=== PATIENT | female | born 1975 | race American Indian/Alaskan Native ===

== ENCOUNTER 2020-04-02 17:55 | Emergency (ER) | payer BC, OTHER ==
[2020-04-02 18:02] VITALS: BP 161/103
--- NOTE | 2020-04-02 18:07 | Event Note ---
ED Screening Note Date of service: 04/02/20 Time: 18:06 ED Screening Note: Patient complains of shortness of breath and hemoptysis x2 days Denies history of DVT/PE or leg pain/swelling or recent long travel This initial assessment/diagnostic orders/clinical plan/treatment(s) is/are subject to change based on patients health status, clinical progression and re- assessment by fellow clinical providers in the ED. Further treatment and workup at subsequent clinical providers discretion. Patient/guardian urged not to elope from the ED as their condition may be serious if not clinically assessed and managed. Initial orders include: Labs Chest x-ray
[2020-04-02 18:51] LABS: Basophils % (Auto) 0.2 % (0.0-1.8); Eosinophils % (Auto) 0.4 % (0.0-4.3); Hematocrit 39.9 % (30.3-42.9); Hemoglobin 13.6 gm/dl (10.1-14.3); Lymphocytes # (Auto) 1.7 K/mm3 (1.2-5.4); Lymphocytes % (Auto) 31.1 % (13.4-35.0); Mean Corpuscular HGB Conc 34 % (30-34); Mean Corpuscular Volume 83 fl (79-97); Monocytes # (Auto) 0.4 K/mm3 (0.0-0.8); Monocytes % (Auto) 6.6 % (0.0-7.3); Platelet Count 306 K/mm3 (140-440); Red Blood Count 4.84 M/mm3 (3.65-5.03); Red Cell Distribution Width 14.7 % (13.2-15.2)
[2020-04-02 18:58] LABS: INR 1.12 (0.87-1.13); Partial Thromboplastin Time 26.6 Sec. (24.2-36.6)
[2020-04-02 19:11] LABS: Alanine Aminotransferase 30 units/L (7-56); Albumin 3.8 g/dL (3.9-5); BUN/Creatinine Ratio 10; Blood Urea Nitrogen 8 mg/dL (7-17); Calcium 8.6 mg/dL (8.4-10.2); Hemolysis Index 3
--- NOTE | 2020-04-02 19:41 | XRay Report ---
CHEST PA AND LATERAL VIEWS INDICATION: hemoptysis, SOB. COMPARISON: None FINDINGS: Support devices: None Heart: Normal Lungs/Pleura: No acute pulmonary or pleural findings. IMPRESSION: 1. No active disease. Signer Name: Cal Duarte MD Signed: 04/02/2020 7:36 PM Workstation Name: [id number]
--- NOTE | 2020-04-02 21:57 | Emergency Department Report ---
- General Chief Complaint: Dyspnea/Respdistress Stated Complaint: DIFFICULTY BREATHING/COUGHING BLOOD Time Seen by Provider: 04/02/20 18:05 Source: patient Mode of arrival: Ambulatory Limitations: No Limitations - History of Present Illness Initial Comments: Patient is a 44-year-old -Bangl[place]hi female with a history of obesity and hypertension who presents to the ED with complaint of acute onset persistent nasal and sinus congestion, persistent dry cough with shortness of breath for the last 1 week worse in the last 2 days. Patient states that the cough is especially worse at night when she lays down to sleep and the nasal and sinus congestion has since improved significantly. Patient states that she has been taking nqiu-gaz-kthnhrs medications with no relief. Patient denies dizziness, syncope, fever, chills, nausea, vomiting, chest pain, abdominal pain, sore th roat, headache, change in vision or hemoptysis or diarrhea. MD Complaint: cough -: week(s) (1) Severity: moderate Severity scale (0 -10): 5 Quality: dull, aching Consistency: constant Improves With: nothing Worsens With: nothing Associated Symptoms: denies other symptoms, rhinorrhea, nasal congestion, cough. denies: fever, myalgias, diaphoresis, headache, sore throat, stiff neck, chest pain, shortness of breath, abdominal pain, nausea, vomiting, diarrhea, dysuria, rash, confusion, right sweats, weight loss, epistaxis, ear pain Treatments Prior to Arrival: none - Related Data Home Medications Medication Instructions Recorded Confirmed Last Taken Amlodipine Besylate [Norvasc] 04/18/13 04/18/13 Unknown Previous Rx's Medication Instructions Recorded Last Taken Type Butalb/Acetaminophen/Caffeine 1 each PO Q6HR PRN #10 tablet 04/18/13 Unknown Rx [Fioricet 50-325-40 mg Tablet] Albuterol Sulfate [Proventil Hfa] 1 - 2 puff IH Q4H PRN #1 hfa.aer.ad 04/02/20 Unknown Rx Azithromycin [Zithromax Z-WILLIAM] 250 mg PO DAILY #6 tablet 04/02/20 Unknown Rx Benzonatate [Tessalon Perles] 100 mg PO Q8HR #30 capsule 04/02/20 Unknown Rx Cetirizine HCl [Zyrtec 10mg tab] 10 mg PO DAILY #30 tablet 04/02/20 Unknown Rx methylPREDNISolone [Medrol 4MG 4 mg PO DAILY #21 tab.ds.pk 04/02/20 Unknown Rx DOSEPAK (21 tabs)] Allergies Allergy/AdvReac Type Severity Reaction Status Date / Time No Known Allergies Allergy Unverified 04/18/13 13:21 ED Review of Systems ROS: Stated complaint: DIFFICULTY BREATHING/COUGHING BLOOD Other details as noted in HPI Constitutional: denies: chills, fever Eyes: denies: eye pain, eye discharge, vision change ENT: congestion. denies: ear pain, throat pain Respiratory: cough, shortness of breath. denies: wheezing Cardiovascular: denies: chest pain, palpitations Endocrine: no symptoms reported Gastrointestinal: denies: abdominal pain, nausea, diarrhea Genitourinary: denies: urgency, dysuria, discharge Musculoskeletal: denies: back pain, joint swelling, arthralgia Skin: denies: rash, lesions Neurological: headache. denies: weakness, paresthesias Psychiatric: denies: anxiety, depression Hematological/Lymphatic: denies: easy bleeding, easy bruising ED Past Medical Hx - Past Medical History Previous Medical History?: Yes Hx Hypertension: Yes - Social History Smoking Status: Never Smoker Substance Use Type: None - Medications Home Medications: Home Medications Medication Instructions Recorded Confirmed Last Taken Type Amlodipine Besylate [Norvasc] 04/18/13 04/18/13 Unknown History Butalb/Acetaminophen/Caffeine 1 each PO Q6HR PRN #10 tablet 04/18/13 Unknown Rx [Fioricet 50-325-40 mg Tablet] Albuterol Sulfate [Proventil Hfa] 1 - 2 puff IH Q4H PRN #1 hfa.aer.ad 04/02/20 Unknown Rx Azithromycin [Zithromax Z-WILLIAM] 250 mg PO DAILY #6 tablet 04/02/20 Unknown Rx Benzonatate [Tessalon Perles] 100 mg PO Q8HR #30 capsule 04/02/20 Unknown Rx Cetirizine HCl [Zyrtec 10mg tab] 10 mg PO DAILY #30 tablet 04/02/20 Unknown Rx methylPREDNISolone [Medrol 4MG 4 mg PO DAILY #21 tab.ds.pk 04/02/20 Unknown Rx DOSEPAK (21 tabs)] ED Physical Exam - General Limitations: No Limitations General appearance: alert, in no apparent distress - Head Head exam: Present: atraumatic, normocephalic - Eye Eye exam: Present: normal appearance, PERRL, EOMI - ENT ENT exam: Present: normal exam, normal orophraynx, mucous membranes moist, TM's normal bilaterally, normal external ear exam - Neck Neck exam: Present: normal inspection, full ROM - Respiratory Respiratory exam: Present: normal lung sounds bilaterally. Absent: respiratory distress, wheezes, rales, rhonchi, stridor, chest wall tenderness, accessory muscle use, decreased breath sounds, prolonged expiratory - Cardiovascular Cardiovascular Exam: Present: normal rhythm, tachycardia, normal heart sounds. Absent: systolic murmur, diastolic murmur, rubs, gallop - GI/Abdominal GI/Abdominal exam: Present: soft, normal bowel sounds. Absent: distended, tenderness, guarding, hyperactive bowel sounds, hypoactive bowel sounds, organomegaly - Extremities Exam Extremities exam: Present: normal inspection, full ROM, normal capillary refill - Back Exam Back exam: Present: normal inspection, full ROM. Absent: tenderness, CVA tenderness (R), CVA tenderness (L), muscle spasm, paraspinal tenderness, verteb ral tenderness - Neurological Exam Neurological exam: Present: alert, oriented X3, CN II-XII intact, normal gait, reflexes normal - Psychiatric Psychiatric exam: Present: normal affect, normal mood - Skin Skin exam: Present: warm, dry, intact, normal color. Absent: rash ED Course Vital Signs 04/02/20 18:00 Temperature 99.0 F Pulse Rate 132 H Respiratory 20 Rate Blood Pressure 161/103 O2 Sat by Pulse 96 Oximetry ED Medical Decision Making - Lab Data Result diagrams: 04/02/20 18:17 04/02/20 18:17 - Radiology Data Findings [facility] [address] [place] [address] XRay Report Signed Patient: UJANY CHANG MR# : [id number] : 1975 Acct:[id number] Age/Sex: 44 / F ADM Date: 04/02/20 Loc: ED Attending Dr: Ordering Physician: JACY CARRASQUILLO Date of Service: 04/02/20 Procedure(s): XR chest routine 2V Accession Number(s): [id number] cc: JACY CARRASQUILLO Fluoro Time In Minutes: CHEST PA AND LATERAL VIEWS INDICATION: hemoptysis, SOB. COMPARISON: None FINDINGS: Support devices: None Heart: Normal Lungs/Pleura: No acute pulmonary or pleural findings. IMPRESSION: 1. No active disease. Signer Name: Cal Duarte MD Signed: 04/02/2020 7:36 PM Workstation Name: [id number] Transcribed By: TM Dictated By: Cal Duarte MD Electronically Authenticated By: Cal Duarte MD Signed Date/Time: 04/02/201935 DD/ 34 TD/TT: - Medical Decision Making This is a 44-year-old -B[place] female with a history of obesity and hypertension who presents to the ED with complaint of acute onset persistent nasal and sinus congestion, persistent dry cough with shortness of breath for the last 1 week worse in the last 2 days. Patient states that the cough is especially worse at night when she lays down to sleep and the nasal and sinus co ngestion has since improved significantly. Patient states that she has been taking lykp-fkv-xcnpcya medications with no relief. In the ED, patient is alert and oriented x3 and is not in any distress. Patient was however anxious and tachycardic in triage. Chest x-ray shows no acute cardiopulmonary abnormalities or pneumonitis. Lab test results were reviewed and are all nonactionable. On reevaluation, patient his hemodynamically stable, with oxygen saturation of 96% in room air and tachycardia improved significantly to 105 bpm due to anxiety. Patient was discharged home on medications and advised to follow-up with her primary care physician in 7 to 10 days for reevaluation or return to the ED immediately if symptoms get worse. - Differential Diagnosis Bronchitis; pneumonia; URI; Sinusitis; Covid-19 Critical care attestation.: If time is entered above; I have spent that time in minutes in the direct care of this critically ill patient, excluding procedure time. ED Disposition Clinical Impression: Acute upper respiratory infection Acute bronchitis Qualifiers: Bronchitis organism: other organism Qualified Code(s): J20.8 - Acute bronchitis due to other specified organisms Disposition: DC-01 TO HOME OR SELFCARE Is pt being admited?: No Does the pt Need Aspirin: No Condition: Stable Instructions: Acute Bronchitis (ED), Upper Respiratory Infection, Adult, Nzfs-[id number], Acute Bronchitis, Adult, [id number]-[id number] Additional Instructions: All lab test results are nonactionable. Chest x-ray shows no acute abnormalities. Therefore take medications with food, drink plenty of fluids and follow up with your Primary Care Physician in 7-10 days for reevaluation. Return to the ED immediately if symptoms get worse Prescriptions: methylPREDNISolone [Medrol 4MG DOSEPAK (21 tabs)] 4 mg PO DAILY #21 tab.ds.pk Albuterol Sulfate [Proventil Hfa] 1 - 2 puff IH Q4H PRN #1 hfa.aer.ad PRN Reason: Dyspnea Benzonatate [Tessalon Perles] 100 mg PO Q8HR #30 capsule Azithromycin [Zithromax Z-WILLIAM] 250 mg PO DAILY #6 tablet Cetirizine HCl [Zyrtec 10mg tab] 10 mg PO DAILY #30 tablet Referrals: [facility] [Provider Group] - 7-10 days YASIR HATHAWAY MD [Staff Physician] - 3-5 Days Time of Disposition: 21:53 Print Language: PORTUGUESE
== END 2020-04-02 22:30 | disposition home or self-care (01) ==
LOC: ED 17:55
DX: J20.9 Acute bronchitis, unspecified (principal); J06.9 Acute upper respiratory infection, unspecified; I10 Essential (primary) hypertension; Z79.2 Long term (current) use of antibiotics; Z79.899 Other long term (current) drug therapy
CPT/HCPCS: 36415; 71046; 80053; 84703; 85025; 85610; 85730

== ENCOUNTER 2020-06-15 20:03 | Emergency (ER) | payer OTHER ==
--- NOTE | 2020-06-15 20:34 | Event Note ---
ED Screening Note Date of service: 06/15/20 Time: 20:33 ED Screening Note: Patient complains of right hip pain after a fall 1 week ago States trouble with abduction of the right hip This initial assessment/diagnostic orders/clinical plan/treatment(s) is/are subject to change based on patients health status, clinical progression and re- assessment by fellow clinical providers in the ED. Further treatment and workup at subsequent clinical providers discretion. Patient/guardian urged not to elope from the ED as their condition may be serious if not clinically assessed and managed. Initial orders include: X-ray
--- NOTE | 2020-06-15 21:44 | XRay Report ---
RIGHT HIP 3 VIEW(S) INDICATION / CLINICAL INFORMATION: pain after fall injury COMPARISON: None available. FINDINGS: BONES / JOINT(S): No acute fracture or subluxation. Mild right hip arthrosis with marginal osteophyte of the acetabulum. SOFT TISSUES: No significant abnormality. ADDITIONAL FINDINGS: None. Signer Name: River Pike MD Signed: 06/15/2020 9:40 PM Workstation Name: [id number]
--- NOTE | 2020-06-15 22:02 | Emergency Department Report ---
ED Fall HPI - General Chief Complaint: Extremity Injury, Lower Stated Complaint: FALL/RT SIDE HIP PAIN Time Seen by Provider: 06/15/20 20:33 Source: patient Mode of arrival: Ambulatory - History of Present Illness Initial Comments: 44-year-old obese -[place] female [facility] department status post slip and fall onto her right hip causing pain and throbbing. She was on 03/04 involving the right side reports having dull throbbing pain with palpation and various points of range of motion reports no numbness or tingling, no saddle paresthesia, no fever, chills, sweats, no hematuria, no dysuria, no back pain Complaint: fall -: Sudden Fall From: standing Fall Witnessed: yes, by family Place Fall Occurred: home Loss of Consciousness: none Prolonged Down Time?: no Symptoms Prior to Fall: none Location - Extremities: Right: Leg Severity: mild, moderate Quality: dull Context: tripped/slipped Associated Symptoms: denies: neck pain, numbness, shortness of breath, abdominal pain, hematuria, unable to walk, vertigo, confusion - Related Data Home Medications Medication Instructions Recorded Confirmed Last Taken Amlodipine Besylate [Norvasc] 04/18/13 04/18/13 Unknown Previous Rx's Medication Instructions Recorded Last Taken Type Butalb/Acetaminophen/Caffeine 1 each PO Q6HR PRN #10 tablet 04/18/13 Unknown Rx [Fioricet 50-325-40 mg Tablet] Albuterol Sulfate [Proventil Hfa] 1 - 2 puff IH Q4H PRN #1 hfa.aer.ad 04/02/20 Unknown Rx Azithromycin [Zithromax Z-WILLIAM] 250 mg PO DAILY #6 tablet 04/02/20 Unknown Rx Benzonatate [Tessalon Perles] 100 mg PO Q8HR #30 capsule 04/02/20 Unknown Rx Cetirizine HCl [Zyrtec 10mg tab] 10 mg PO DAILY #30 tablet 04/02/20 Unknown Rx methylPREDNISolone [Medrol 4MG 4 mg PO DAILY #21 tab.ds.pk 04/02/20 Unknown Rx DOSEPAK (21 tabs)] traMADoL [Ultram] 50 mg PO Q6HR PRN #10 tablet 06/15/20 Unknown Rx Allergies Allergy/AdvReac Type Severity Reaction Status Date / Time No Known Allergies Allergy Unverified 04/18/13 13:21 ED Review of Systems ROS: Stated complaint: FALL/RT SIDE HIP PAIN Other details as noted in HPI Comment: All other systems reviewed and negative ED Past Medical Hx - Past Medical History Hx Hypertension: Yes - Social History Smoking Status: Never Smoker - Medications Home Medications: Home Medications Medication Instructions Recorded Confirmed Last Taken Type Amlodipine Besylate [Norvasc] 04/18/13 04/18/13 Unknown History Butalb/Acetaminophen/Caffeine 1 each PO Q6HR PRN #10 tablet 04/18/13 Unknown Rx [Fioricet 50-325-40 mg Tablet] Albuterol Sulfate [Proventil Hfa] 1 - 2 puff IH Q4H PRN #1 hfa.aer.ad 04/02/20 Unknown Rx Azithromycin [Zithromax Z-WILLIAM] 250 mg PO DAILY #6 tablet 04/02/20 Unknown Rx Benzonatate [Tessalon Perles] 100 mg PO Q8HR #30 capsule 04/02/20 Unknown Rx Cetirizine HCl [Zyrtec 10mg tab] 10 mg PO DAILY #30 tablet 04/02/20 Unknown Rx methylPREDNISolone [Medrol 4MG 4 mg PO DAILY #21 tab.ds.pk 04/02/20 Unknown Rx DOSEPAK (21 tabs)] traMADoL [Ultram] 50 mg PO Q6HR PRN #10 tablet 06/15/20 Unknown Rx ED Physical Exam - General Limitations: No Limitations General appearance: alert, in no apparent distress - Head Head exam: Present: atraumatic, normocephalic - Eye Eye exam: Present: normal appearance, PERRL, EOMI Pupils: Present: normal accommodation - ENT ENT exam: Present: normal exam, mucous membranes moist, TM's normal bilaterally - Neck Neck exam: Present: normal inspection, full ROM - Respiratory Respiratory exam: Present: normal lung sounds bilaterally. Absent: respiratory distress - Cardiovascular Cardiovascular Exam: Present: regular rate, normal rhythm. Absent: systolic murmur, diastolic murmur, rubs, gallop - GI/Abdominal GI/Abdominal exam: Present: soft, normal bowel sounds - Extremities Exam Extremities exam: Present: normal inspection - Expanded Lower Extremity Exam Right Hip exam: Present: full ROM, tenderness (Right hip in the area of the greater trochanter. Full range of motion is noted). Absent: swelling, abrasion, ecchymosis, deformity, crepidus, dislocation, erythema, external rotation, internal rotation, shortening Lower Leg exam: Present: normal inspection Ankle exam: Present: normal inspection Foot/Toe exam: Present: normal inspection - Back Exam Back exam: Present: normal inspection - Neurological Exam Neurological exam: Present: alert, oriented X3 - Psychiatric Psychiatric exam: Present: normal affect, normal mood - Skin Skin exam: Present: warm, dry, intact, normal color. Absent: rash ED Course Vital Signs 06/15/20 20:17 Temperature 98.3 F Pulse Rate 99 H Respiratory 18 Rate Blood Pressure 153/112 O2 Sat by Pulse 100 Oximetry ED Medical Decision Making - Radiology Data Radiology results: report reviewed [address] [place] [address] XRay Report Signed Patient: JUANY CHANG MR# : [id number] : 1975 Acct:[id number] Age/Sex: 44 / F ADM Date: 06/15/20 Loc: ED Attending Dr: Ordering Physician: JACY CARRASQUILLO Date of Service: 06/15/20 Procedure(s): XR hip 2-3V RT Accession Number(s): [id number] cc: JACY CARRASQUILLO Fluoro Time In Minutes: RIGHT HIP 3 VIEW(S) INDICATION / CLINICAL INFORMATION: pain after fall injury COMPARISON: None available. FINDINGS: BONES / JOINT(S): No acute fracture or subluxation. Mild right hip arthrosis with marginal osteophyte of the acetabulum. SOFT TISSUES: No significant abnormality. ADDITIONAL FINDINGS: None. Signer Name: River Pike MD Signed: 06/15/2020 9:40 PM Workstation Name: [id number] Transcribed By: Dictated By: RIVER PIKE Electronically Authenticated By: RIVER PIKE Signed Date/Time: 06/15/202139 DD/ 37 TD/TT: Critical care attestation.: If time is entered above; I have spent that time in minutes in the direct care of this critically ill patient, excluding procedure time. ED Disposition Clinical Impression: Contusion of hip, right Disposition: DC-01 TO HOME OR SELFCARE Is pt being admited?: No Does the pt Need Aspirin: No Condition: Stable Instructions: Contusion, How to Use Cold Therapy Prescriptions: traMADoL [Ultram] 50 mg PO Q6HR PRN #10 tablet PRN Reason: Pain Referrals: PRIMARY CARE, [Primary Care Provider] - 3-5 Days [facility] [Provider Group] - 3-5 Days
[2020-06-15 22:43] VITALS: BP 151/91
== END 2020-06-15 22:15 | disposition home or self-care (01) ==
LOC: ED 20:03
DX: S70.01XA Contusion of right hip, initial encounter (principal); I10 Essential (primary) hypertension; Z79.899 Other long term (current) drug therapy; W18.30XA Fall on same level, unspecified, initial encounter; Y93.89 Activity, other specified; Y92.89 Other specified places as the place of occurrence of the external cause; Y99.8 Other external cause status
CPT/HCPCS: 99283